=== PATIENT | male | born 1965 | race Caucasian/White ===

== ENCOUNTER 2018-07-02 09:02 | Outpatient (CLI) | payer BC ==
[2018-07-02 11:31] LABS: Anion Gap 12 mmol/L (10-20); BUN (Urea Nitrogen) 19 mg/dL (8.9-20.6); Calc. Creatinine Clearance 0 mL/min (70-130); Calcium 9.4 mg/dL (7.8-10.44); Carbon Dioxide 23 mmol/L (22-29); Chloride 106 mmol/L (98-107); Estimated GFR-MDRD 76; Glucose 82 mg/dL (70-105); Sodium 137 mmol/L (136-145)
== END 2018-07-02 09:03 | disposition home or self-care (01) ==
LOC: LABBT 09:02
PROVIDERS: ATTEND Surgery
DX: Z01.812 Encounter for preprocedural laboratory examination (principal); K42.9 Umbilical hernia without obstruction or gangrene
CPT/HCPCS: 80048

== ENCOUNTER 2018-07-10 11:53 | Day surgery (SDC) | payer BC ==
[2018-07-02 09:12] VITALS: BMI 32.4
[2018-07-10] MEDS ORDERED: CEFAZOLIN 2 GM/50 ML BAG ONE (13:17)
[2018-07-10] MEDS ORDERED: Bupivacaine/Epinephrine 0.25% 30 ML VIAL ONE (15:15)
[2018-07-10] MEDS ORDERED: Fentanyl 100 MCG/2 ML VIAL ONE (15:41)
[2018-07-10] MEDS ORDERED: SUGAMMADEX SODIUM 200 MG/2 ML VIAL ONE (16:22)
[2018-07-10] MEDS ORDERED: Ketorolac Tromethamine 30 MG/ML VIAL ONE (16:46)
[2018-07-10] MEDS ORDERED: Dexamethasone 20 MG/5 ML VIAL ONE (16:46)
[2018-07-10] MEDS ORDERED: Ondansetron PF 4 MG/2 ML Vial ONE (16:46)
[2018-07-10] MEDS ORDERED: PROPOFOL 200 MG/20 ML VIAL ONE (16:46)
[2018-07-10] MEDS ORDERED: Glycopyrrolate 0.2 MG/ML 5 ML SYRINGE ONE (16:46)
[2018-07-10] MEDS ORDERED: traMADol HCl 50 MG TAB ONE (18:46)
--- NOTE | 2018-07-11 13:29 | OP ---
DATE OF PROCEDURE: 07/10/2018 PREOPERATIVE DIAGNOSIS: Umbilical hernia. POSTOPERATIVE DIAGNOSIS: Umbilical hernia. PROCEDURE PERFORMED: Umbilical hernia repair with mesh, Ventralex ST 4 cm. ANESTHESIA: General. ESTIMATED BLOOD LOSS: Minimal. COMPLICATIONS: None. SPECIMENS: None. FINDINGS: Umbilical hernia. TECHNIQUE: The patient was taken to the operating room and laid supine on the operating room table. After general anesthetic was obtained, the abdomen was shaved, prepped, and draped in a sterile fashion. A curved incision was made below the umbilicus. Cautery was used to dissect down to and score the fascia. The umbilical stalk was amputated, exposing umbilical defect. The edge of the fascial defect was dissected and freshened back to good fascia. The Ventralex ST small mesh was brought into the sterile field. The underlay was placed in preperitoneal space, its tail was laid out lateral. The tail sewn to the posterior fascia using interrupted permanent braided suture. The fascia was closed loosely over the mesh. The wound was irrigated. Local anesthetic was applied. Umbilical stalk was tacked back down using 3-0 Vicryl. The skin was closed using 3-0 Vicryl, 4-0 Monocryl, and Dermabond. The patient was sent to Recovery in stable condition. All instrument counts, needle counts, and lap counts were correct. Job ID: [id number]
== END 2018-07-10 19:20 | disposition home or self-care (01) ==
LOC: SDC 11:53
PROVIDERS: ATTEND Surgery
PROC: 0WUF0JZ Supplement Abdominal Wall with Synthetic Substitute, Open Approach (ICD-10-PCS; principal; 2018-07-10)
DX: K42.9 Umbilical hernia without obstruction or gangrene (principal); Z88.5 Allergy status to narcotic agent
CPT/HCPCS: J1100; J1885; J2405; J2704; J3010

== ENCOUNTER 2018-12-03 07:07 | Outpatient (CLI) | payer BC ==
--- NOTE | 2018-12-03 08:01 | CT ---
Exam: CT CERVICAL SPINE WITHOUT CONTRAST: HISTORY: Cervicalgia COMPARISON: None FINDINGS: No craniocervical dissociation. Appropriate alignment of the lateral masses of C1 and C2. Intact odon toid process Appropriate alignment of the facets. Soft tissue neck structures: No mass, lymphadenopathy or hematoma. No prevertebral soft tissue swelli ng. Upper mediastinum and lung apices: Unremarkable Vertebral bodies: Cervical spine vertebral body height is maintained. No fracture. Limited evaluation the contents of the central spinal canal and neural foramina due to technique C2-C3: Central disc osteophyte complex. Mild central canal stenosis. Neural foramina are patent C3-C4: Broad-based disc osteophyte complex with a central component that deforms the ventral thecal s ac and ventral cord. At least [id number] central canal stenosis. Right neural foramen is patent. Mild left foraminal narrowing C4.-C5: Broad-based disc osteophyte complex abuts the thecal sac and causes deformity of the ventral cord. At leads mild to moderate central canal stenosis. Neural foramina are patent C5-C6: Central disc osteophyte complex with severe central canal stenosis. Moderate bilateral foramin al narrowing due to uncovertebral hypertrophy C6-C7: Broad-based disc osteophyte complex with moderate central canal stenosis secondary to central disc osteophyte component. Mild bilateral foraminal narrowing C7-T1: No significant central canal stenosis or neural foraminal narrowing Incompletely evaluated pleural-based opacity in the right lung apex measuring 0.7 x 1.1 cm IMPRESSION: 1. Severe central canal stenosis at C5-C6. There are additional levels of significant central canal s tenosis as described above. Further evaluation with MRI is recommended, barring any contraindications 2. Incompletely evaluated opacity in the right lung apex. Code LN (lung nodule). CODE T Transcribed Date/Time: 12/03/2018 8:32 AM
== END 2018-12-03 07:08 | disposition home or self-care (01) ==
LOC: SCSCT 07:07
PROVIDERS: ATTEND Family Medicine
DX: M54.2 Cervicalgia (principal); M48.02 Spinal stenosis, cervical region
CPT/HCPCS: 72125

== ENCOUNTER 2018-12-12 14:38 | Outpatient (CLI) | payer BC ==
--- NOTE | 2018-12-12 15:09 | RAD ---
4 views right elbow History right elbow pain FINDINGS: There is enthesopathic change off the posterior olecranon. There is fragmentation of the en thesophyte which may reflect sequela of remote trauma. No acute fracture or subluxation is evident. No joint capsular distention is noted. IMPRESSION: Moderate enthesopathic change off of the olecranon. There is fragmentation of the entheso phyte which may reflect sequela of remote trauma. No acute osseous abnormality.
--- NOTE | 2018-12-12 15:32 | CT ---
CT Chest W Con: 12/12/2018 12:00 AM CLINICAL INDICATION: Suspicious opacity seen on prior CT of the cervical spine dated December 03, 2018 fro m [facility]. COMPARISON: CT cervical spine dated December 03, 2018. FINDINGS: Lung and Large Airways: There is a serpiginous, nodular opacity in the right lung apex, abutting the right superior mediastinal margin. This lesion is associated with a prominent pulmonary draining vein. The nodule measures 1.9 x 2.2 cm in its greatest axial and craniocaudad dimensions. No addition al suspicious nodules noted. There is a 2 mm subpleural nodule within the anterior lateral left lower lobe on image 42 of series 3. No emphysematous change is present. Pleura: No effusion or mass. Vessels: Normal appearing. Heart: Normal appearing. No pericardial effusion.. Mediastinum and Marcela: Normal. Chest Wall and Lower Neck: Normal. Upper Abdomen: There is mild fatty liver. Bones: No acute osseous abnormality. There is scattered degenerative and osteoarthritic change presen t. IMPRESSION: 1. Serpiginous nodular opacity within the right lung apex, abutting the right superior mediastinal ma rgin. There is a suspicion for a slightly prominent draining pulmonary vein from this lesion raising the possibility that this lesion may reflect a pulmonary AVM. Other differential consideratio ns include a malignant pulmonary nodule or solitary pulmonary nodule related to granulomatous disease. Would recommend a CTA of the thorax with and without contrast for further characterization. 2. Mild fatty liver
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
== END 2018-12-12 14:39 | disposition home or self-care (01) ==
LOC: SCSMRI 14:38
PROVIDERS: ATTEND Family Medicine
DX: M48.02 Spinal stenosis, cervical region (principal); M25.521 Pain in right elbow; R91.8 Other nonspecific abnormal finding of lung field; K76.0 Fatty (change of) liver, not elsewhere classified; M77.8 Other enthesopathies, not elsewhere classified
CPT/HCPCS: 71260; 72141

== ENCOUNTER 2019-03-20 09:46 | Outpatient (CLI) | payer BC ==
--- NOTE | 2019-03-20 13:45 | MRI ---
CERVICAL SPINE MRI WITHOUT CONTRAST: Date: 03/20/19 HISTORY: Cervical spinal stenosis. COMPARISON: 12/12/18. TECHNIQUE: Multiplanar, multisequence MR imaging of the cervical spine provided without contrast. FINDINGS: Sagittal STIR Imaging demonstrates no focal area of osseous marrow edema. There is no significant anterolisthesis or retrolisthesis seen within the cervical spine. No preverte bral soft tissue abnormality. There is mild/moderate degenerative change seen at the atlantoaxial interspace. C2-3: Small central disc protrusion with no associated central canal stenosis. There is no significa nt neural foraminal stenosis. C3-4: There is disc desiccation with disc bulge and a small central disc protrusion causing mild jordi tral canal stenosis. No significant neural foraminal stenosis. C4-5: There is disc space narrowing and disc desiccation with a small central disc protrusion causin g mild central canal stenosis. No significant neural foraminal stenosis. C5-6: There is disc space narrowing, disc desiccation, anterior osteophyte formation, and degenerati ve end plate change. There is posterior osteophyte formation in the central and right paracentral reg ion with an associated right paracentral disc protrusion causing mild/moderate central canal stenosis to the right of midline. Bilateral uncovertebral osteophyte formation noted with mild/moderate bilat eral neural foraminal stenosis. C6-7: There is disc space narrowing, disc desiccation, anterior osteophyte formation, and mild disc bulge, with a small central/left paracentral disc protrusion causing mild central canal stenosis. Mil d right neural foraminal stenosis on the basis of uncovertebral osteophyte formation noted. C7-T1: No significant central canal or neural foraminal stenosis. No focal area of abnormal signal intensity is identified within the cervical cord. There has been no significant interval change when compared to the 12/12/18 study. IMPRESSION: Multilevel cervical spine degenerative change, most prominent at C5-6 and C6-7 as detailed above. POS: OFF
== END 2019-03-20 09:47 | disposition home or self-care (01) ==
LOC: TBSIIMAG 09:46
PROVIDERS: ATTEND Anesthesiology Pain Medicine
DX: M48.02 Spinal stenosis, cervical region (principal); M47.812 Spondylosis without myelopathy or radiculopathy, cervical region
CPT/HCPCS: 72141

== ENCOUNTER 2019-04-27 12:37 | Outpatient (CLI) | payer BC ==
--- NOTE | 2019-04-27 13:51 | MRI ---
MRI Lower Ext Jt Lt WO Con HISTORY: Knee pain times several weeks. COMPARISON: None. FINDINGS: The anterior cruciate ligament and posterior cruciate ligaments are intact. The lateral meniscus is normal in shape and appearance. There is an undersurface flap tear of the posterior horn of the medial meniscus, this has a displaced component extending into the meniscotibial recess. There is an oblong shaped collection which is deep to the medial collateral ligament measuring 5.8 cm in length. This is felt to represent a parame niscal cyst rather than a pes anserine bursitis due to its extension superior to the joint line although is difficult to show it definitive connection to the meniscal tear. The medial and lateral collateral ligaments and iliotibial band regions are unremarkable. The patellar articular cartilage is intact. The medial lateral patellar retinaculum and quadriceps an d patellar tendons are unremarkable. A medial patellar plica is present. IMPRESSION: Flap type tear involving the posterior horn and body region of the medial meniscus there is a displaced flap component present with a small amount of meniscal tissue displacing into the meniscotibial recess. In addition there is a prominent fluid collection deep to the MCL which is prob ably parameniscal cyst formation related to the tear, less likely a pes anserine bursitis.
== END 2019-04-27 12:38 | disposition home or self-care (01) ==
LOC: TBSIIMAG 12:37
PROVIDERS: ATTEND Family Medicine
DX: M25.562 Pain in left knee (principal); S83.242A Other tear of medial meniscus, current injury, left knee, initial encounter

== ENCOUNTER 2019-05-06 07:49 | Day surgery (SDC) | payer BC ==
[2019-04-29 10:04] VITALS: BMI 30.7
[2019-05-06] MEDS ORDERED: Fentanyl 100 MCG/2 ML VIAL ONE ×2 (08:25→09:20)
[2019-05-06] MEDS ORDERED: Midazolam HCl 2 mg/2 ml Vial ONE (08:27)
--- NOTE | 2019-05-06 10:45 | OP ---
DATE OF PROCEDURE: 05/06/2019 [employer] CALLER: Montana Woodward PA-C INDICATION: Pain. DIAGNOSIS: Cervical radiculopathy. PROCEDURE PERFORMED: Anterior cervical diskectomy and fusion spanning C5 to C7. ANESTHESIA: General. DESCRIPTION OF PROCEDURE: The patient was brought into the operating room and placed under general anesthesia. He was placed on the table in a supine position. A transverse incision was planned over the lateral aspect of the neck on the right. After prepping and draping and after an appropriate operative pause, the incision was created. The underlying platysma muscle was identified and incised. A blunt tissue plane anterior to the sternocleidomastoid muscle was used to gain access to the prevertebral space. Self-retaining retractors were placed in the wound for optimal exposure. After confirming the appropriate level with C-arm fluoroscopy, an annulotomy was performed at C6-C7 disk space. All disk material as well as anterior and posterior osteophytes were removed to decompress the exiting nerve root. After decompressing the segment, a 7-mm lordotic PEEK cage packed with allograft and autograft material was placed within the interbody space. We then redirected our attention to level above at C5-C6, where again an annulotomy was performed. All disk material as well as anterior and posterior osteophytes were removed until the area was decompressed. A 6 mm lordotic PEEK cage packed with allograft and autograft material was placed within the interbody space. An anterior cervical plate was then fashioned to the front of spine and secured with a total of 6 screws. Midline lateral structures were inspected and found to be free from significant trauma. The wound was irrigated. Hemostasis was maintained throughout. The wound was then closed in anatomic layers and a pressure dressing was applied. There were no known procedural complications. Job ID: [id number]
[2019-05-06] MEDS ORDERED: Morphine 4 MG/ML VIAL ONE ×2 (11:17→11:47)
[2019-05-06] MEDS ORDERED: Acetaminophen/Codeine 30-300mg Tablet ONE (11:47)
== END 2019-05-06 13:20 | disposition home or self-care (01) ==
LOC: SDC 07:49
PROVIDERS: ATTEND Neurological Surgery
PROC: 0RT30ZZ Resection of Cervical Vertebral Disc, Open Approach (ICD-10-PCS; principal; 2019-05-06)
PROC: 0RG20A0 Fusion of 2 or more Cervical Vertebral Joints with Interbody Fusion Device, Anterior Approach, Anterior Column, Open Approach (ICD-10-PCS; principal; 2019-05-06)
DX: M54.12 Radiculopathy, cervical region (principal); M48.02 Spinal stenosis, cervical region; Z88.5 Allergy status to narcotic agent; Z88.8 Allergy status to other drugs, medicaments and biological substances
CPT/HCPCS: 76000; C1713; C1776; J0690; J2250; J2270; J3010

== ENCOUNTER 2019-05-25 05:44 | Outpatient (CLI) | payer BC ==
[2019-05-25 10:55] LABS: #Basophils 0.1 thou/uL (0.0-0.2); #Eosinphils 0.3 thou/uL (0.0-0.7); #Lymphocytes 2.4 thou/uL (1.20-3.40); #Monocytes 0.6 thou/uL (0.11-0.59); #Neutrophils 5.9 thou/uL (1.40-6.50); %Basophils 0.6 % (0.0-1.0); %Eosinophils 3.4 % (0.0-10.0); %Lymphocytes 25.8 % (21.0-51.0); %Monocytes 6.3 % (0.0-10.0); %Neutrophils 63.9 % (42.0-75.0); Hemoglobin 15.4 g/dL (14.0-18.0); Mean Corpuscular Hemoglobin 29.5 pg (27.0-31.0); Mean Corpuscular Volume 86.6 fL (78.0-98.0); Mean Platelet Volume 7.3 fL (7.4-10.4); Platelet Count 360 thou/uL (130-400); RBC Distribution Width 11.4 % (11.5-14.5); Red Blood Cell (RBC) Count 5.24 mill/uL (4.70-6.10); White Blood Cell (WBC) Count 9.3 thou/uL (4.8-10.8)
[2019-05-25 11:10] LABS: Anion Gap 15 mmol/L (10-20); BUN (Urea Nitrogen) 13 mg/dL (8.4-25.7); Calc. Creatinine Clearance 0 mL/min (70-130); Calcium 9.9 mg/dL (7.8-10.44); Carbon Dioxide 23 mmol/L (22-29); Chloride 105 mmol/L (98-107); Estimated GFR-MDRD 74; Glucose 82 mg/dL (70-105); Potassium 4.1 mmol/L (3.5-5.1); Sodium 139 mmol/L (136-145)
--- NOTE | 2019-05-25 16:28 | EKG ---
Test Reason : Blood Pressure : / mmHG Vent. Rate : 076 BPM Atrial Rate : 076 BPM P-R Int : 146 ms QRS Dur : 088 ms QT Int : 386 ms P-R-T Axes : 032 075 005 degrees QTc Int : 434 ms Normal sinus rhythm Normal ECG No previous ECGs available Confirmed by DR. Margaux LIVE ([id number]) on 05/25/2019 4:27:52 PM Referred By: IERO Confirmed By:DR. Margaux LIVE
== END 2019-05-25 05:45 | disposition home or self-care (01) ==
LOC: LABBT 05:44
PROVIDERS: ATTEND Orthopaedic Surgery
DX: Z01.818 Encounter for other preprocedural examination (principal); S83.207A Unspecified tear of unspecified meniscus, current injury, left knee, initial encounter; M25.862 Other specified joint disorders, left knee
CPT/HCPCS: 80048; 85025; 93005; 93010

== ENCOUNTER 2019-05-27 08:13 | Day surgery (SDC) | payer BC ==
[2019-05-25 08:50] VITALS: BMI 30.7
[2019-05-27] MEDS ORDERED: Fentanyl 100 MCG/2 ML VIAL ONE ×2 (09:06→11:17)
[2019-05-27] MEDS ORDERED: Ketorolac Tromethamine 30 MG/ML VIAL ONE (10:32)
[2019-05-27] MEDS ORDERED: Lidocaine 1% PF 5 ML VIAL ONE (10:32)
[2019-05-27] MEDS ORDERED: Bupivacaine HCl 0.5%/Epinephrine 1:200,000/PF 30 ml Vial ONE (10:32)
[2019-05-27] MEDS ORDERED: PROPOFOL 200 MG/20 ML VIAL ONE (10:32)
[2019-05-27] MEDS ORDERED: Ondansetron PF 4 MG/2 ML Vial ONE (10:32)
[2019-05-27] MEDS ORDERED: Lidocaine 2% w/Epinephrine 1:200K 20 ML VIAL ONE (10:32)
[2019-05-27] MEDS ORDERED: Bupivacaine PF 0.5% 30 ML VIAL ONE (10:35)
--- NOTE | 2019-05-27 10:56 | OP ---
DATE OF PROCEDURE: 05/27/2019 PREOPERATIVE DIAGNOSES: 1. Left knee degenerative complex tear of the medial meniscus including body and posterior horn. 2. A parameniscal cyst, left knee. PROCEDURES PERFORMED: 1. Left knee arthroscopy with partial medial meniscectomy. 2. Open removal of left knee parameniscal cyst of the medial meniscus. SERVICE TECHNICIAN COPIER: Edu Guerrero PA-C ESTIMATED BLOOD LOSS: Minimal. ANESTHESIA: He had a general anesthetic as well as a local knee block. DISPOSITION: He went to recovery room in stable condition. IMPLANTS: There were no implants. COMPLICATIONS: No complications. SPECIMEN: We did send the cyst to the lab. INDICATIONS: Marcos is a 53-year-old male, who comes in complaining of left knee pain. He came in with an MRI that showed a large parameniscal cyst as well as a complex degenerative tear of the medial meniscus. At this time, he opted for surgery. DESCRIPTION OF PROCEDURE: After all appropriate consent forms were explained and signed, he was taken back to the operating room and at this time was given general anesthetic. A tourniquet was placed on the left leg. Leg was placed in arthroscopic leg muñoz. The limb was then prepped and draped in standard surgical fashion. Limb was exsanguinated. Tourniquet was taken to 300 mmHg. Inferolateral portal was established and the scope was placed into the knee joint. A needle localization technique was then used to make our medial working portal. Diagnostic arthroscopy commenced in the notch. ACL and PCL were probed, found to be intact. There was some grade 2 changes in the medial femoral condyle. There was a large complex tear of the medial meniscus including the majority of the body going around to the posterior horn. Partial meniscectomy was performed using meniscal biter and shaver. There was a flap of the meniscal tissue that was in the meniscotibial recess. This was pulled out and removed as well. Once this was cleaned out, we moved onto our lateral compartment, which was found to be completely intact. Gutters were swept through, no loose bodies were noted and the patellofemoral joint was also found to be in good condition. At this time, we removed the scope and drained the knee. A longitudinal incision was made down through skin only. This was done medially starting at the joint line and going distal. This was anterior to the MCL. As soon as we got down through the first layer of fascia, we were able to visualize our cyst. We sharply dissected out the cyst. We then popped the cyst with a knife, removed the jelly and sucked it out. We then cut out the cyst and sent it to the lab. We were then able to find a small poke hole that went into the joint. This was closed up with 0 Vicryl stitch and we then closed our fascial layer over top of this and we then used 2-0 Vicryl and nylon sutures to close the small incision. This was thoroughly irrigated before closing. We then infiltrated the incision with some local for postop pain relief. Once this was done, we then placed a bulky sterile dressing onto the leg. Tourniquet was let down. Toes pinked up nicely. The patient was then awakened, taken to recovery room in stable condition. All counts were correct at the end of the case and he did receive preoperative IV antibiotics. Job ID: [id number]
== END 2019-05-27 12:40 | disposition home or self-care (01) ==
LOC: SDC 08:13
PROVIDERS: ATTEND Orthopaedic Surgery
PROC: 0JBP0ZZ Excision of Left Lower Leg Subcutaneous Tissue and Fascia, Open Approach (ICD-10-PCS; principal; 2019-05-27)
PROC: 0SBD4ZZ Excision of Left Knee Joint, Percutaneous Endoscopic Approach (ICD-10-PCS; principal; 2019-05-27)
DX: M23.322 Other meniscus derangements, posterior horn of medial meniscus, left knee (principal); M23.007 Cystic meniscus, unspecified meniscus, left knee; Z88.5 Allergy status to narcotic agent; Z88.6 Allergy status to analgesic agent
CPT/HCPCS: 88304; J0670; J1885; J2001; J2405; J2704; J3010; S0020

== ENCOUNTER 2022-04-27 14:18 | Outpatient (CLI) | payer BC | END 2022-04-27 14:19 | disposition home or self-care (01) | LOC: TBSIIMAG 14:18 | PROVIDERS: ATTEND Orthopaedic Surgery | DX: M23.91 Unspecified internal derangement of right knee (principal); S83.241A Other tear of medial meniscus, current injury, right knee, initial encounter; S76.111A Strain of right quadriceps muscle, fascia and tendon, initial encounter; M94.8X5 Other specified disorders of cartilage, thigh; M71.21 Synovial cyst of popliteal space [Baker], right knee ==